=== PATIENT | male | born 1975 | race African-American/Black ===

== ENCOUNTER 2018-05-28 16:07 | Inpatient (IN) | payer SELFPAY ==
[2018-05-28] MEDS ORDERED: CEFAZOLIN/Water 2 GM/20 ML SYRINGE ONE (16:11)
[2018-05-28] MEDS ORDERED: Adacel (T-DAP) 0.5 ML VIAL ONE (16:11)
[2018-05-28 16:36] LABS: Hemoglobin 14.3 g/dL (14.0-18.0); Mean Corpuscular HGB CONC 33.4 g/dL (32.0-36.0); Mean Corpuscular Hemoglobin 29.3 pg (27.0-31.0); Mean Corpuscular Volume 87.9 fL (78.0-98.0); Mean Platelet Volume 7.2 fL (7.4-10.4); Platelet Count 213 thou/uL (130-400); RBC Distribution Width 12.3 % (11.5-14.5); Red Blood Cell (RBC) Count 4.87 mill/uL (4.70-6.10)
[2018-05-28 16:48] LABS: Anion Gap 17 mmol/L (10-20); BUN (Urea Nitrogen) 11 mg/dL (8.9-20.6); Calc. Creatinine Clearance 0 mL/min (70-130); Calcium 9.2 mg/dL (7.8-10.44); Carbon Dioxide 21 mmol/L (22-29); Chloride 105 mmol/L (98-107); Estimated GFR-MDRD Greater than 90; Glucose 98 mg/dL (70-105); Potassium 3.8 mmol/L (3.5-5.1); Sodium 139 mmol/L (136-145)
--- NOTE | 2018-05-28 16:49 | RAD ---
THREE VIEWS RIGHT HAND 05/28/18 COMPARISON: None. HISTORY: Trauma, pain. FINDINGS: There is an obliquely oriented comminuted angulated and displaced open fracture involving the proxima l phalanx of the fifth digit. There is a comminuted obliquely oriented nondisplaced fracture involv ing the fourth proximal phalanx extending into the fourth metacarpophalangeal joint. The degree of irregularity at the fracture site involving the fifth digit suggests partial amputation of the fifth finger. No additional fracture is evident. IMPRESSION: 1. Comminuted obliquely oriented open fracture involving the mid shaft fifth proximal phalanx. T here is a superficial 3-4 mm radiodensity along the volar aspect of the soft tissues which could repr esent a radiopaque foreign body or a displaced fracture fragment on the surface of the skin. 2. Comminuted obliquely oriented fracture of fourth proximal phalanx extending into the fourth m etacarpophalangeal joint. POS: [facility]
[2018-05-28 16:54] LABS: #Basophils 0.1 thou/uL (0.0-0.2); #Eosinphils 0.1 thou/uL (0.0-0.7); #Lymphocytes 1.9 thou/uL (1.20-3.40); #Monocytes 0.5 thou/uL (0.11-0.59); #Neutrophils 2.3 thou/uL (1.40-6.50); %Basophils 1.1 % (0.0-1.0); %Eosinophils 2.2 % (0.0-10.0); %Lymphocytes 39.2 % (21.0-51.0); %Monocytes 11.1 % (0.0-10.0); %Neutrophils 46.4 % (42.0-75.0); Band 1 % (5-11); Lymphocytes 47 % (21-51); MDiff Complete? YES; Monocytes 8 % (0-10); Neutrophil 43 % (42-75); PLT Morphology Comment Appears Adequate; RBC Morphology Normal; Reactive Lymphocytes 1 % (0-10)
[2018-05-28] MEDS ORDERED: Bupivacaine PF 0.5% 30 ML VIAL ONE (17:35)
[2018-05-28] MEDS ORDERED: Heparin 10,000 UNITS/1 ML VIAL ONE (17:35)
[2018-05-28] MEDS ORDERED: Bacitracin Zinc Ointment 30 gm TUBE ONE (17:36)
[2018-05-28] MEDS ORDERED: Hetastarch 6% 500 ML 0 ML ONE (17:36)
[2018-05-28] MEDS ORDERED: Hetastarch 6% 500 ML 500 ML ONE (17:36)
[2018-05-28] MEDS ORDERED: Sodium Chloride 0.9% 20 ML ONE (17:48)
[2018-05-28] MEDS ORDERED: Midazolam HCl 2 mg/2 ml Vial ONE (17:51)
[2018-05-28] MEDS ORDERED: Penicillin G Potassium 3 MILL.UNITS in Sodium Chloride 0.9% 50 ML IVPB SCH (18:00)
[2018-05-28] MEDS ORDERED: Promethazine HCl 25 MG/ML VIAL IM PRN ×2 (20:36→21:01)
[2018-05-28] MEDS ORDERED: traMADol HCl 50 MG TAB PO PRN (20:36)
[2018-05-28] MEDS ORDERED: Milk Of Magnesia 30 ML UDCUP PO PRN (20:36)
[2018-05-28] MEDS ORDERED: Bisacodyl 10 MG SUPP PR PRN (20:36)
[2018-05-28] MEDS ORDERED: Ondansetron HCl/PF 4 MG/2 ML Vial IV PRN (20:36)
[2018-05-28] MEDS ORDERED: RENALLY ADJUST ANTIBIOTICS FS SCH (20:45)
[2018-05-28] MEDS ORDERED: Meperidine HCl/PF 25 MG/ML VIAL IM PRN (20:56)
[2018-05-28] MEDS ORDERED: Labetalol HCl 100 MG/20 ML VIAL ONE (20:59)
[2018-05-28] MEDS ORDERED: Promethazine HCl 25 MG/ML VIAL SLOW IVP PRN (21:01)
[2018-05-28] MEDS ORDERED: Ondansetron HCl/PF 4 MG/2 ML Vial IVP PRN (21:01)
--- NOTE | 2018-05-28 21:16 | RAD ---
INTRAOPERATIVE FOUR VIEW EXAMINATION OF THE RIGHT FIFTH FINGER 05/28/18 HISTORY: ORIF. FINDINGS: Previously noted mid shaft fifth proximal phalangeal fracture is treated with two percutaneous pins. There is anatomic alignment of the fracture site. IMPRESSION: ORIF as above. POS: [facility]
[2018-05-28] MEDS ORDERED: hydrALAZINE 20 MG/ML VIAL ONE (21:22)
[2018-05-28] MEDS: CEFAZOLIN 1 GM in Sodium Chloride 0.9% 100 ML IVPB SCH (22:34)
[2018-05-28] MEDS: Aspirin 81 mg Enteric Coated Tablet PO SCH (22:34)
[2018-05-28 23:07] VITALS: BMI 21.2
[2018-05-28] MEDS: Ketorolac Tromethamine 30 MG/ML VIAL IVP PRN (23:44)
[2018-05-29 05:21] LABS: #Basophils 0.1 thou/uL (0.0-0.2); #Lymphocytes 1.3 thou/uL (1.20-3.40); #Monocytes 0.7 thou/uL (0.11-0.59); %Basophils 0.9 % (0.0-1.0); %Eosinophils 0.5 % (0.0-10.0); %Lymphocytes 16.3 % (21.0-51.0); %Monocytes 8.7 % (0.0-10.0); %Neutrophils 73.5 % (42.0-75.0); Hemoglobin 13.1 g/dL (14.0-18.0); Mean Corpuscular HGB CONC 33.9 g/dL (32.0-36.0); Mean Corpuscular Hemoglobin 29.7 pg (27.0-31.0); Mean Corpuscular Volume 87.5 fL (78.0-98.0); Mean Platelet Volume 7.7 fL (7.4-10.4); Platelet Count 194 thou/uL (130-400); RBC Distribution Width 12.3 % (11.5-14.5); White Blood Cell (WBC) Count 8.2 thou/uL (4.8-10.8)
--- NOTE | 2018-05-29 06:01 | OP ---
DATE OF PROCEDURE: 05/28/2018 PREOPERATIVE DIAGNOSES: 1. Grade 3A open fracture of the small finger proximal phalanx with marked bone loss, extensor tendo n loss, and deep contamination from multiple particles to include mcbride metal shavings, and wood chi ps. 2. Grade 2 open fracture proximal phalanx without displaced incomplete fracture pattern at the right ring finger. 3. Extensor tendon laceration of both digits with extensor tendon loss of substance over the small f fely as well as loss of bony substance to intact neurovascular structures by exam and by circulation , evaluation even after surgery. POSTOPERATIVE DIAGNOSES: 1. Grade 3A open fracture of the small finger proximal phalanx with marked bone loss, extensor tendo n loss, and deep contamination from multiple particles to include mcbride metal shavings, and wood chi ps. 2. Grade 2 open fracture proximal phalanx without displaced incomplete fracture pattern at the right ring finger. 3. Extensor tendon laceration of both digits with extensor tendon loss of substance over the small f fely as well as loss of bony substance to intact neurovascular structures by exam and by circulation , evaluation even after surgery. PROCEDURES PERFORMED: 1. Small finger: A. Debridement of wound deep. B. Debridement of material associated open fracture. C. Open treatment with temporary K-wire fixation of the small finger fracture. D. C-arm supervision. 2. At the ring finger: A. Wound debridement. B. Debridement of material associated open fracture. C. Extensor tendon repair. D. C-arm supervision. No internal fixation required here. INDICATION: The patient was holding saw for his boss when the saw slipped, contact his right dominan t hand, left with the lacerations listed above. DESCRIPTION OF PROCEDURE: After successful general LMA technique, the limb was prepped and draped. The dorsal wounds were inspected, there were multiple yellow gold particles or wood chips in the smal l finger, not seen in the ring finger indicative of a higher degree of contamination at the small fin hailee. For this reason, we inflated the tourniquet after exsanguination of limb, extended the incision over the small finger about 1 cm distal, 1 cm proximal to the same over the ring finger. We inspect ed the ring finger, there was no unstable fracture. Fracture had no gross motion and there were no c ontamination particles seen in the ring finger at the scene and small finger where patient had a gold yellow metal shaving type contaminants, pieces of sawdust in which communis was down to the bone, ev en deep to the bone and volar aspect. This required a debridement of material associated with open f racture at both digits with a deeper dissection using multiple instruments such as a curette, [place] e levator, rongeur, bone hook as well as the excisional technique and we found significant gross contam ination. At that point, we did not feel comfortable placing the final internal fixation and wound cl osure over this area. The patient then had the debridement completed to include skin edges, where there was noticed s ome skin on small and ring finger dorsal aspect. We then inspected the undersurface of the small fin hailee fracture site, an extensor mechanism was intact. We finished a 5000 mL of normal saline bag x2 _ ____ antibiotics inside. We then brought C-arm to the field. The bone loss at the small finger prox imal phalanx fracture required us to best fit the fracture and we based this final fixation on rotati on, which appeared to be adequate and compared to the right ring finger, which was not completely fra ctured. We finished the irrigation with final 5 liters of normal saline with antibiotics inside, finished the debridement, closed the incisions that we made prior to the initiating content and put a bulky dress ing, wet-to-dry moist on the injured areas and put the patient in a sugar-tong splint. The patient l eft the operating room without evidence of anesthetic or operative complication, realized that he had an internal fixation K-wires to serve as a temporary stent with no infection. Next 24 hours, return ed to OR and 24 hours for final debridement, possible plate fixation because of his unstable distal t hird proximal phalanx fracture and patient will have his final care.
[2018-05-29] MEDS: CEFAZOLIN 1 GM in Sodium Chloride 0.9% 100 ML IVPB SCH ×2 (06:02→14:53)
[2018-05-29] MEDS: HYDROcodone/Acetaminophen 5/325 mg Tablet PO PRN (06:12)
[2018-05-29] MEDS: Aspirin 81 mg Enteric Coated Tablet PO SCH (08:52)
[2018-05-29] MEDS ORDERED: TETANUS AND DIPHTHERIA TOX/PF 0.5 ML DISP.SYRIN IM SCH (09:00)
[2018-05-29] MEDS: Ketorolac Tromethamine 30 MG/ML VIAL IVP PRN ×2 (10:22→18:21)
[2018-05-29] MEDS: Morphine 4 MG/ML VIAL SLOW IVP PRN ×2 (10:23→18:22)
[2018-05-29] MEDS ORDERED: Lidocaine 1% PF 5 ML VIAL ONE ×2 (13:24→13:58)
[2018-05-29] MEDS ORDERED: PROPOFOL 200 MG/20 ML VIAL ONE ×2 (13:24→13:58)
[2018-05-29] MEDS ORDERED: Succinylcholine Chloride 20 MG/ML 10 ml SYRINGE FS ONE (13:24)
[2018-05-29] MEDS ORDERED: Ketorolac Tromethamine 30 MG/ML VIAL ONE (13:58)
[2018-05-29] MEDS ORDERED: Dexamethasone 20 MG/5 ML VIAL ONE (13:58)
[2018-05-29] MEDS ORDERED: Ondansetron HCl/PF 4 MG/2 ML Vial ONE (13:58)
[2018-05-29] MEDS ORDERED: ePHEDrine/0.9% NaCl/PF SYRINGE 50 mg/10 ml ONE (13:58)
[2018-05-29] MEDS ORDERED: Ondansetron HCl/PF 4 MG/2 ML Vial IVP PRN (20:27)
[2018-05-29] MEDS ORDERED: Promethazine HCl 25 MG/ML VIAL SLOW IVP PRN (20:27)
[2018-05-29] MEDS ORDERED: Promethazine HCl 25 MG/ML VIAL IM PRN (20:27)
[2018-05-29] MEDS ORDERED: Fentanyl 100 MCG/2 ML VIAL ONE (20:34)
[2018-05-29] MEDS ORDERED: Bupivacaine PF 0.5% 30 ML VIAL ONE (20:38)
[2018-05-29] MEDS ORDERED: Thrombin 5000 UNITS/5 ML VIAL ONE (20:38)
[2018-05-29] MEDS ORDERED: Betamet Acet/Betamet Na Ph 30 MG/5 ML VIAL ONE (20:38)
[2018-05-29] MEDS ORDERED: Sodium Chloride 0.9% 50 ML ONE (20:38)
[2018-05-29] MEDS ORDERED: Bacitracin Zinc Ointment 30 gm TUBE ONE ×2 (20:38→23:19)
[2018-05-30] MEDS ORDERED: Promethazine HCl 25 MG/ML VIAL IM PRN (00:13)
[2018-05-30] MEDS ORDERED: Ondansetron HCl/PF 4 MG/2 ML Vial IVP PRN (00:13)
[2018-05-30] MEDS ORDERED: Promethazine HCl 25 MG/ML VIAL SLOW IVP PRN (00:13)
[2018-05-30] MEDS: CEFAZOLIN 1 GM in Sodium Chloride 0.9% 100 ML IVPB SCH ×4 (00:59→14:46)
[2018-05-30] MEDS: Aspirin 81 mg Enteric Coated Tablet PO SCH ×3 (00:59→08:43)
[2018-05-30] MEDS: Morphine 4 MG/ML VIAL SLOW IVP PRN (01:04)
[2018-05-30] MEDS: Ketorolac Tromethamine 30 MG/ML VIAL IVP PRN (01:54)
[2018-05-30] MEDS: HYDROcodone/Acetaminophen 5/325 mg Tablet PO PRN ×2 (06:27→12:45)
--- NOTE | 2018-05-30 08:07 | RAD ---
FINGERS RIGHT HAND: Date: 05/29/18 Two fluoroscopic images of right index finger obtained in OR. INDICATION: Imaging during open reduction and internal fixation procedure. FINDINGS/IMPRESSION: Images demonstrate plate and screws transfixing the proximal phalanx. POS: [facility]
[2018-05-30 15:20] VITALS: BP 133/86; TEMP 98.7
--- NOTE | 2018-05-31 10:21 | OP ---
DATE OF SURGERY: 05/30/2018 SURGEON: Earl Langley M.D. ANESTHESIA: General LMA technique. PREOPERATIVE DIAGNOSES: 1. Right small finger open distal phalanx fracture with extensor tendon laceration, zone 4 complete and a 6 cm wound. 2. Right ring finger, 7 cm wound. PROCEDURES PERFORMED: 1. At the right small finger: A. Right small finger wound debridement. B. Right small finger bone of material associated open fracture debridement. C. Removal of K-wires under C-arm. D. Right small finger proximal phalanx comminuted and complex right open reduction and internal fixa tion of small finger. E. Zone 4 extensor tendon repair. F. A 6-cm wound closure. 2. Right ring finger: A. Wound debridement. B. Right ring finger wound closure, 7 cm. ESTIMATED BLOOD LOSS: 20 mL. TOURNIQUET TIME: 85 minutes. FINDINGS: Very minimal contamination today. INDICATIONS: The patient returns for staged-wound management because of multiple contamination, beata cially particles of gold appeared wood chips and sleeve in a metal residue have approximately 30 hour s before surgery began and underwent a full debridement with percutaneous pinning only, stabilizes th e fracture until final definitive debridement and closure could be accomplished. DESCRIPTION OF PROCEDURE: After successful general LMA technique is listed above. The patient had t he time out done appropriately. The limb was exsanguinated, tourniquet inflated to 250 mmHg pressure and then we removed the sutures from the previous partial medial flap closure. I inspected both wou nds, small hematoma of the ring finger and a moderate hematoma along the fracture line was seen. Fra cture line was irrigated, debrided, using final debridement techniques: A. Isthmus included curette [place] in the irrigation bag. B. The depth was down to include bone, inspected the volar surface but not debrided there. C. It was the excisional technique. D. There is no gross fracture contamination on the small bowel in the soft tissues. They have been debrided to be never problem afterwards. We then slightly coaptated and the reduction along the wires already in place, which oblique to avoid the pin holes, placed on a 3-hole distally, flare plate securely held into the bone, the fracture li ne was reduced somewhat even with the K-wires still in, and then visualized and the wires would not b e penetrated by the screw hole. Then, beginning distally, we placed two screw holes in the dual (Y) distal end then one obliquely oriented appropriately to help maintain the collapse of the fracture an d finally, we checked the rotation, it was excellent with no malrotation, so we were able to place th e remainder screw in the standard drill measure technique. exchanged distally, but otherwise n o change in rotational height was seen. The patient then turned attention to the extensor tendon mechanism, where we freed it somewhat from t he radial intrinsic, which was spared going across the field. The patient then had the tourniquet deflated, the extensor mechanism was not completely closed with a running [id number] suture, there was no other abnormality seen at the right small finger. Right small finger to finish this definitive debridement as well as irrigation of [place] pres sure. Attention was turned to the right ring finger. Here, the wound edges were elevated. The tend on inspected, there was no defect. Then, we were able to irrigate the wound, debride subcutaneous fa t and lipomas tissue. There was no further contamination seen. The tourniquet was now deflated. He mostasis obtained. We closed wound in simple nylon suture, and there was no complications. The carlos ent then left the operating room after the wound was closed, tourniquet deflated. Hemostasis obtaine d with an interrupted 4-0 nylon simple pattern, but the ulnar wound was complex, we were able to use simple pattern closure. There was no malrotation seen at any digit, and we then placed a bulky dress ing with a palmar splint out to the level of the fingertips and the patient left the operating room w ith good circulation. No evidence of anesthetic or operative complication.
== END 2018-05-30 17:58 | disposition home or self-care (01) | DRG 513 ==
LOC: ERS 16:07 → SURG B 20:59
PROVIDERS: ADMIT Orthopaedic Surgery Hand Surgery; ATTEND Orthopaedic Surgery Hand Surgery
PROC: 0PST04Z Reposition Right Finger Phalanx with Internal Fixation Device, Open Approach (ICD-10-PCS; principal; 2018-05-30)
PROC: 0LQ70ZZ Repair Right Hand Tendon, Open Approach (ICD-10-PCS; 2018-05-30)
PROC: 0JDJ0ZZ Extraction of Right Hand Subcutaneous Tissue and Fascia, Open Approach (ICD-10-PCS; 2018-05-30)
PROC: 0JQJ0ZZ Repair Right Hand Subcutaneous Tissue and Fascia, Open Approach (ICD-10-PCS; 2018-05-30)
DX: S62.636B Displaced fracture of distal phalanx of right little finger, initial encounter for open fracture (principal); S66.326A Laceration of extensor muscle, fascia and tendon of right little finger at wrist and hand level, initial encounter; W29.3XXA Contact with powered garden and outdoor hand tools and machinery, initial encounter; Y93.9 Activity, unspecified; Y92.89 Other specified places as the place of occurrence of the external cause; S61.214A Laceration without foreign body of right ring finger without damage to nail, initial encounter
CPT/HCPCS: 36415; 36416; 76001; 80048; 85025; 90471; 90715; 93005; 96374; A4216; C1713; G0390; J0360; J0690; J0702; J1100; J1644; J1885; J2001; J2250; J2270; J2405; J2540; J2704; J3010; J3490; J7050; S0020